=== PATIENT | female | born 2000 | race Caucasian/White ===

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

== ENCOUNTER 2020-09-13 14:08 | Emergency (ER) | payer BC, MEDICAID ==
[~2020-09-13] VITALS: Ht 154.9 cm; Wt 75.3 kg
[~2020-09-13 14:08] MED LIST changes: +PERCOCET PO
[2020-09-13] MEDS ORDERED: NS 500 ML IV ONE (16:05)
[2020-09-13 17:31] LABS: BASO # 0.1 10^3/uL (0.0-0.2); BASO % 0.5 % (0.0-1.0); EOS # 0.1 10^3/uL (0.0-0.5); EOS % 1.3 % (0.0-3.0); HEMATOCRIT 43.9 % (36.0-47.0); HEMOGLOBIN 15.4 g/dl (12.0-15.5); LYMPH # 2.9 10^3/uL (1.5-5.0); LYMPH % 30.7 % (24.0-44.0); MEAN CORPUSCULAR HEMOGLOBIN 31.6 pg (27.0-33.0); MEAN CORPUSCULAR HGB CONC 35.1 g/dl (32.0-36.5); MEAN CORPUSCULAR VOLUME 90.1 fl (80.0-96.0); MONO # 0.6 10^3/uL (0.0-0.8); MONO % 6.2 % (2.0-8.0); NEUTROPHILS # 5.7 10^3/uL (1.5-8.5); PLATELET COUNT, AUTOMATED 241 10^3/uL (150-450); RED BLOOD COUNT 4.87 10^6/uL (4.00-5.40); WHITE BLOOD COUNT 9.4 10^3/uL (4.0-10.0)
[2020-09-13 17:56] LABS: ALBUMIN 4.3 GM/DL (3.2-5.2); BILIRUBIN,DIRECT 0.1 MG/DL (0.0-0.2); BILIRUBIN,TOTAL 0.5 MG/DL (0.2-1.0); TOTAL PROTEIN 7.5 GM/DL (6.4-8.2)
[2020-09-13] MEDS ORDERED: ISOVUE-370 76% 100ML VIAL As Ordered ONE (17:57)
--- NOTE | 2020-09-13 19:05 | REPVR ---
PROCEDURE INFORMATION: Exam: CT Abdomen And Pelvis With Contrast Exam date and time: 09/13/2020 5:51 PM Age: 20 years old Clinical indication: Abdominal pain; Additional info: Abdominal pain / not passing gas TECHNIQUE: Imaging protocol: Computed tomography of the abdomen and pelvis with contrast. Radiation optimization: All CT scans at this facility use at least one of these dose optimization techniques: automated exposure control; mA and/or kV adjustment per patient size (includes targeted exams where dose is matched to clinical indication); or iterative reconstruction. Contrast material: ISOVUE 370; Contrast volume: 100 ml; Contrast route: INTRAVENOUS (IV); COMPARISON: No relevant prior studies available. FINDINGS: Lungs: The lung bases are unremarkable. Liver: The liver is mildly low dense likely due to fatty infiltration. Gallbladder and bile ducts: The gallbladder is unremarkable. Pancreas: The pancreas is normal. Spleen: The spleen is unremarkable. Adrenal glands: The adrenal glands are unremarkable. Kidneys and ureters: The kidneys are unremarkable. Stomach and bowel: There is no evidence of intestinal obstruction. Appendix: The appendix is unremarkable. Intraperitoneal space: There is a minimal amount of free fluid in the cul-de-sac and more prominent in the right adnexa. Vasculature: The aorta is unremarkable. Lymph nodes: Unremarkable. No enlarged lymph nodes. Urinary bladder: The bladder is unremarkable. Reproductive: There is fluid surrounding a rim enhancing presumed collapsing right ovarian cyst which measures 2 cm. Bones/joints: Unremarkable. No acute fracture. Soft tissues: Unremarkable. IMPRESSION: There appears to be a collapsing right ovarian cyst with adjacent free fluid in the right adnexa which may account for the patient's pain. Electronically signed by: Merlene Hall On 09/13/2020 19:06:23 PM
[2020-09-13 20:05] VITALS: BP 122/78
[2020-09-14] MEDS ORDERED: VANC1CAP6 PO (10:07)
--- NOTE | 2020-09-14 10:14 | ED PDOC ---
Post-Departure Follow-Up Patient's GI panel came back positive for C [place] A/B. Prescribed a two week course of Vancomycin 125mg PO, four times a day for 2 weeks and gave her the contact information to follow up with Dr. Shaw of infectious disease for management. Patient acknowledged above and had no further questions at this time. ROSHNI GRIFFIN PA-C Sep 14, 2020 10:14
== END 2020-09-13 20:21 | disposition home or self-care (01) ==
LOC: M ED 14:08
DX: K92.1 Melena (principal); R19.7 Diarrhea, unspecified; R10.9 Unspecified abdominal pain; N83.201 Unspecified ovarian cyst, right side; Z86.19 Personal history of other infectious and parasitic diseases; Q61.3 Polycystic kidney, unspecified; F41.9 Anxiety disorder, unspecified; F33.9 Major depressive disorder, recurrent, unspecified; Z90.13 Acquired absence of bilateral breasts and nipples
CPT/HCPCS: 74177; 80047; 80076; 81001; 83605; 83690; 84702; 85025; 87086; 87505; 99284; Q9967

== ENCOUNTER 2020-12-24 07:52 | Day surgery (SDC) | payer BC, MEDICAID ==
[~2020-12-24] VITALS: Ht 154.9 cm; Wt 69.4 kg
[~2020-12-24 07:52] MED LIST changes: +LIDOCAINE 2% 100MG/5ML SDV (FOR ANES.) As Ordered ONE; +NS 1,000 ML IV ONE; +VANC1CAP6 PO; +propofoL 200 MG/20 ML VIAL As Ordered ONE
--- NOTE | 2020-12-24 09:19 | ROOR ---
Patient Name: Vance Fountain Procedure Date: 12/24/2020 8:41 AM Date of : 2000 Age: 20 Room: [facility] Gender: Female Note Status: Finalized Procedure: Colonoscopy Indications: Hematochezia, Change in bowel habits, Constipation Providers: Jamey Selby MD Referring MD: Polly YEH MD Requesting Provider: Medicines: Monitored Anesthesia Care Complications: No immediate complications. Procedure: Pre-Anesthesia Assessment: - Prior to the procedure, a History and Physical was performed, and patient medications and allergies were reviewed. The patient is competent. The risks and benefits of the procedure and the sedation options and risks were discussed with the patient. All questions were answered and informed consent was obtained. Patient identification and proposed procedure were verified by the physician, the nurse and the anesthesiologist in the procedure room. Mental Status Examination: alert and oriented. Airway Examination: normal oropharyngeal airway and neck mobility. Respiratory Examination: clear to auscultation. CV Examination: normal. Prophylactic Antibiotics: The patient does not require prophylactic antibiotics. Prior Anticoagulants: The patient has taken no previous anticoagulant or antiplatelet agents. ASA Grade Assessment: II - A patient with mild systemic disease. After reviewing the risks and benefits, the patient was deemed in satisfactory condition to undergo the procedure. The anesthesia plan was to use monitored anesthesia care (MAC). Immediately prior to administration of medications, the patient was re-assessed for adequacy to receive sedatives. The heart rate, respiratory rate, oxygen saturations, blood pressure, adequacy of pulmonary ventilation, and response to care were monitored throughout the procedure. The physical status of the patient was re-assessed after the procedure. The Colonoscope was introduced through the anus and advanced to the terminal ileum, with identification of the appendiceal orifice and IC valve. The colonoscopy was performed without difficulty. The patient tolerated the procedure well. The quality of the bowel preparation was good. The terminal ileum, ileocecal valve, appendiceal orifice, and rectum were photographed. Scope insertion time was 2 minutes. Scope withdrawal time was 8 minutes. The total duration of the procedure was 10 minutes. Findings: The perianal and digital rectal examinations were normal. A patchy area of mucosa in the terminal ileum was granular. Biopsies were taken with a cold forceps for histology. Verification of patient identification for the specimen was done by the physician and nurse using the patient's name, date and medical record number. Estimated blood loss was minimal. Normal mucosa was found in the entire colon. Non-bleeding external and internal hemorrhoids were found during retroflexion. The hemorrhoids were small. Impression: - Granularity in the terminal ileum. Biopsied. - Normal mucosa in the entire examined colon. - Non-bleeding external and internal hemorrhoids. Recommendation: - Patient has a contact number available for emergencies. The signs and symptoms of potential delayed complications were discussed with the patient. Return to normal activities tomorrow. Written discharge instructions were provided to the patient. - High fiber diet. - Continue present medications. - Miralax 1 capful (17 grams) in 8 ounces of water PO daily. - Await pathology results. - Telephone GI clinic for pathology results in 2 weeks. - Repeat colonoscopy at age 50 for screening purposes. - Return to primary care physician. Procedure Code(s): --- Professional --- 83147, Colonoscopy, flexible; with biopsy, single or multiple Diagnosis Code(s): --- Professional --- K63.89, Other specified diseases of intestine K64.8, Other hemorrhoids K92.1, Melena (includes Hematochezia) R19.4, Change in bowel habit K59.00, Constipation, unspecified CPT copyright 2019 [employer]. All rights reserved. The codes documented in this report are preliminary and upon spouter review may be revised to meet current compliance requirements. Jamey Selby MD Jamey Selby MD 12/24/2020 9:19:39 AM Electronically signed by Jamey Selby MD Number of Addenda: 0 Note Initiated On: 12/24/2020 8:41 AM Estimated Blood Loss: Estimated blood loss was minimal.
[2020-12-24 09:25] VITALS: BP 121/80
== END 2020-12-24 09:55 | disposition home or self-care (01) ==
LOC: M OPP 07:52
PROVIDERS: ATTEND Internal Medicine Gastroenterology
DX: K63.89 Other specified diseases of intestine (principal); K64.8 Other hemorrhoids; K92.1 Melena; R19.4 Change in bowel habit; Z87.42 Personal history of other diseases of the female genital tract

== ENCOUNTER → 2021-10-04 | Outpatient (CLI) | payer BC, MEDICAID ==
[~2021-10-04] MED LIST changes: -LIDOCAINE 2% 100MG/5ML SDV (FOR ANES.) As Ordered ONE; -NS 1,000 ML IV ONE; -propofoL 200 MG/20 ML VIAL As Ordered ONE
== END ==
LOC: M LABSMTC 11:12
PROVIDERS: ATTEND Anesthesiology
DX: Z20.828 Contact with and (suspected) exposure to other viral communicable diseases (principal); Z11.59 Encounter for screening for other viral diseases

== ENCOUNTER → 2024-08-24 | Outpatient (REF) | payer BC, MEDICAID ==
[~2024-08-24] MED LIST changes: +ADDE30CA3 PO; +LEXA1TAB PO; +OXYC1TAB23 PO
[2024-08-24 15:49] LABS: Trichomonas vaginalis (AMP) NOT DETECTED (NEGATIVE)
[2024-08-24 16:12] LABS: GC DNA AMPLIFICATION NEGATIVE (NEGATIVE)
== END ==
LOC: EDSEX → M SFHCWAGY 12:33 → MERGE 12:33
PROVIDERS: ATTEND Obstetrics & Gynecology
DX: Z12.4 Encounter for screening for malignant neoplasm of cervix (principal); Z11.3 Encounter for screening for infections with a predominantly sexual mode of transmission
CPT/HCPCS: 87661; 87810; 87850; G0123

== ENCOUNTER → 2024-09-01 | Outpatient (REF) | payer BC, MEDICAID | LOC: M SFHCRHEU 08:58 | PROVIDERS: ATTEND Internal Medicine Rheumatology | DX: Z53.9 Procedure and treatment not carried out, unspecified reason (principal); R76.8 Other specified abnormal immunological findings in serum; L53.9 Erythematous condition, unspecified; R20.2 Paresthesia of skin; R51.9 Headache, unspecified; R53.83 Other fatigue; K59.09 Other constipation ==

== ENCOUNTER → 2024-09-27 | Outpatient (CLI) | payer BC, OTHER ==
[2024-09-27 10:15] LABS: HEMATOCRIT 40.9 % (42.0-52.0); HEMOGLOBIN 13.4 g/dl (13.5-17.5); MEAN CORPUSCULAR HEMOGLOBIN 29.6 pg (27.0-33.0); MEAN CORPUSCULAR HGB CONC 32.8 g/dl (32.0-36.5); MEAN CORPUSCULAR VOLUME 90.3 fl (80.0-96.0); PLATELET COUNT, AUTOMATED 251 10^3/uL (150-450); RED BLOOD COUNT 4.53 10^6/uL (4.30-6.10); WHITE BLOOD COUNT 6.1 10^3/uL (4.0-10.0)
== END ==
LOC: M PLALAB 08:48
PROVIDERS: ATTEND Obstetrics & Gynecology
DX: N93.9 Abnormal uterine and vaginal bleeding, unspecified (principal)

== ENCOUNTER → 2024-09-27 | Outpatient (CLI) | payer BC, OTHER | LOC: EDSEX → M WHC 07:44 → MERGE 08:15 | PROVIDERS: ATTEND Obstetrics & Gynecology | DX: N93.9 Abnormal uterine and vaginal bleeding, unspecified (principal) ==

== ENCOUNTER → 2025-05-07 | Outpatient (CLI) | payer BC ==
[~2025-05-07] MED LIST changes: +COLA100C5 PO; +FERR325T3 PO; +IBUP80TA PO; +ONDA-282 PO
== END ==
LOC: M RAD 16:06
PROVIDERS: ATTEND Psychiatry & Neurology Neurology
DX: R20.2 Paresthesia of skin (principal); G31.84 Mild cognitive impairment of uncertain or unknown etiology; G44.89 Other headache syndrome; R40.4 Transient alteration of awareness; R42 Dizziness and giddiness